=== PATIENT | male | born 1970 | race Caucasian/White ===

== ENCOUNTER 2019-04-14 21:11 | Emergency (ER) | payer OTHER, SELFPAY ==
[2019-04-14 21:17] VITALS: BP 151/99; PULSE 69; RESP 15; TEMP 36.6; O2SAT 94; BMI 31.3
--- NOTE | 2019-04-14 21:44 | ED_ITS ---
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 He states pain intermittently radiates down legs and states sometimes it will affect right leg and then other times left leg; he does not complain of numbness/tingling/loss of sensation; he has no complaints of saddle anesthesia, urinary retention, or bowel incontinence; patient was ambulatory to his room without difficulty MD elicited complaint: back pain Pertinent past history: prior back pain Onset (ago): hour(s) Timing: constant Location: lumbar spine and thoracic spine Exacerbating factors: movement and walking Context: while lifting Associated symptoms: Reports no associated symptoms; Deny abdominal pain, difficulty walking or syncope Review of Systems Card: Denies: chest pain, palpitations, irregular heart rhythm, edema, lightheadedness, syncope, pre-syncope or shortness of breath when lying down Resp: Denies: shortness of breath GI: Denies: abdominal pain : Denies: difficulty urinating or difficulty starting urination Musc: Reports: back pain; Denies: neck pain, extremity pain, extremity swelling, joint pain or joint swelling Neuro: Denies: numbness in extremities, weakness in extremities, changes in sensation or difficulty walking PFSH ED PFSH: Statuses (acute, chronic, etc) shown below reflect problem list status as previously entered and may not be historically accurate Social History Smoking and tobacco status: never smoked Physical Exam Const: COMMON NORMALS: no apparent distress, average body habitus, oriented x3, no limitations, healthy appearing, alert and well nourished Back/Pelvis: THORACIC SPINE/UPPER BACK: Yes thoracic spinal tenderness (mid to low) LUMBAR SPINE/LOWER BACK: Yes lumbar spinal tenderness Lumbar spinal tenderness location: L4 and L5, Yes paraspinal muscle tenderness (across lower back) and Yes straight leg raise negative bilaterally Extremity: COMMON NORMALS: normal to inspection and full ROM GENERAL: Yes normal exam except as noted OTHER: strength 5/5 in bilateral LEs Neuro: COMMON NORMALS: oriented x3 SENSORIUM/ORIENTATION: Yes alert Skin: COMMON NORMALS: no rashes or lesions noted GENERAL SKIN EXAM: no rashes or lesions noted Course Vital Signs: Vital signs: Vital Signs Temperature 97.9 F 04/14/19 21:17 Pulse Rate 71 04/14/19 22:10 Respiratory Rate 16 04/14/19 22:10 Blood Pressure 129/82 04/14/19 22:10 Pulse Oximetry 96 04/14/19 22:10 MDM - Back Pain/Injury MDM Narrative: Medical decision making narrative: will have pt follow up with worker's comp for further evaluation Imaging Data^: XR thoracic : My impression: NAD XR lumbar: My impression: NAD Discharge Plan Discharge Patient Disposition: Home, Self-Care Clinical Impression: Back strain Qualifiers: Encounter type: initial encounter Qualified Code(s): S39.012A - Strain of muscle, fascia and tendon of lower back, initial encounter Condition: Stable Prescriptions: New prednisone 10 mg tablet 60 mg PO DAILY 5 Days Qty: 30 RF: 0 hydrocodone-acetaminophen 5-325 mg tablet 1 tab PO Q6H PRN (Reason: pain) Qty: 14 RF: 0 diclofenac sodium 50 mg tablet,delayed release (DR/EC) 50 mg PO Q12H PRN (Reason: pain) Qty: 20 RF: 0 Discharge Orders: Discharge Order (Routine); Ordered 04/14/19 Ordered By: Drea Kwon Discharge Diet: Usual diet Discharge Activity: Increase activity as tolerated Activity Restrictions/Additional Instructions: Followup with worker's comp as directed on your paperwork. 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
--- NOTE | 2019-04-14 21:58 | XR_ITS ---
WS: [id number] Lumbar spine, 3 views, 04/14/2019 Clinical Data: injury/pain Comparison: None. Findings: No compression fractures or subluxation is seen. Degenerative disc narrowing at L4-L5 is noted. There is osteoarthritic spurring at L4-L5.. The transverse processes and SI joints are normal. Minimal calcification of the wall of the abdominal aorta is present. There is a large amount of fecal material in the rectum. XR/XR lumbar spine 2-3V* [id number] Impression: 1. Degenerative disc disease at L4-L5. 2. Mild osteoarthritic change at L4-L5.
--- NOTE | 2019-04-14 21:58 | XR_ITS ---
WS: [id number] Thoracic spine, 3 views, 04/14/2019 Clinical Data: injury/pain Comparison: None. Findings: No compression fractures are seen. The disc heights are normal. Minimal osteoarthritic spurring of the thoracic vertebral bodies is seen. XR/XR thoracic spine 3V* [id number] Impression: 1. Negative for compression fracture. 2. Mild osteoarthritis of the thoracic vertebral bodies.
--- NOTE | 2019-04-14 22:09 | PC.NURSE ---
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
[2019-04-14 22:10] VITALS: BP 129/82; PULSE 71; RESP 16; O2SAT 96
[2019-04-14] MEDS: ketorolac 60 mg/2 mL INJ IM (22:18)
[2019-04-14] MEDS: orphenadrine 30 mg/mL Inj 2 mL 60 MG IM (22:18)
[2019-04-14 23:45] VITALS: RESP 16; O2SAT 96
[2019-04-14] MEDS: morphine 4 mg/mL SDV 1 mL IM (23:45)
[2019-04-15 00:17] VITALS: BP 123/78; PULSE 71; RESP 16; O2SAT 95
== END 2019-04-15 00:16 | disposition home or self-care (01) ==
PROVIDERS: Emergency Provider Physician Assistant
DX: S39.012A Strain of muscle, fascia and tendon of lower back, initial encounter (principal); X50.0XXA Overexertion from strenuous movement or load, initial encounter
CPT/HCPCS: 72072; 72100; 96372; 99281; 99283; J1885; J2270; J2360

== ENCOUNTER 2019-11-29 23:38 | Emergency (ER) | payer BC, SELFPAY ==
[2019-11-29 23:44] VITALS: BP 131/86; PULSE 71; RESP 18; TEMP 36.3; O2SAT 93; BMI 26.4
--- NOTE | 2019-11-29 23:47 | CTR_ITS ---
PROCEDURE INFORMATION: Exam: CT Head Without Contrast Exam date and time: 11/29/2019 11:49 PM Age: 49 years old Clinical indication: Injury or trauma; Initial encounter; Blunt trauma (contusions or hematomas); With loss of consciousness; Loss of consciousness for 30 minutes or less; Injury details: Fall down stairs; Additional info: Fall, head trauma and loc TECHNIQUE: Imaging protocol: Computed tomography of the head without contrast. Radiation optimization: All CT scans at this facility use at least one of these dose optimization techniques: automated exposure control; mA and/or kV adjustment per patient size (includes targeted exams where dose is matched to clinical indication); or iterative reconstruction. COMPARISON: No relevant prior studies available. RADIATION DOSE METRICS: Total DLP (mGy-cm): 895.28 FINDINGS: Brain: Normal. No hemorrhage. Unremarkable white matter. No mass effect. Ventricles: No ventriculomegaly. Bones/joints: Unremarkable. No acute fracture. Paranasal sinuses: Visualized sinuses are unremarkable. No fluid levels. Mastoid air cells: Visualized mastoid air cells are well aerated. Soft tissues: Unremarkable. CT/CT head wo con* [id number] IMPRESSION: Negative for intracranial hemorrhage or mass effect. Radiation Dose CTDIVOL = (mGy): DLP = 895.28 (mGy-cm)
--- NOTE | 2019-11-29 23:52 | W.ED.FALL ---
HPI - Fall General: Chief Complaint: Fall Stated Complaint: fell down stairs Time Seen by Provider: 11/29/19 23:47 History of Present Illness: HPI Narrative: Patient is a 49-year-old male comes to the ED after having a fall down a flight of steps. Patient admits that he had been drinking previously. He says he got up in the middle the night and he was staying at his in-laws house and was not as familiar with the layout says that he fell down the stairs. He remembers right before he fell down the steps and then he says he was woken up at the bottom of the steps by his . He has pain in his left shoulder and above left a. He has a superficial abrasion on skin of upper lip just below the left nare. He also has linear laceration to the left of left eyebrow. He also says that his head hurts. He currently rates his pain an 8 out of 10. Associated symptoms-after fall: Reports headache(s); Denies abdominal pain, chest pain, hematuria or neck pain Review of Systems Const: Denies: fever(s), chills or fatigue Eyes: Denies: change in vision or eye discomfort ENMT: Denies: throat pain, odynophagia, nasal discharge or nasal congestion Card: Denies: chest pain, palpitations, edema, swelling of feet/ankles, dyspnea on exertion or orthopnea Resp: Denies: dyspnea, productive cough or non-productive cough GI: Denies: abdominal pain, nausea, vomiting, diarrhea, constipation or hematochezia : Denies: flank pain, difficulty urinating, dysuria or hematuria Musc: Reports: extremity pain (Left shoulder pain); Denies: neck pain, back pain or extremity swelling Skin/Breast: Reports: new lesions (Superficial abrasion on upper lip just below left nare and superficial linear laceration to the left of left eyebrow.); Denies: rash Neuro: Reports: headache(s); Denies: numbness in extremities or weakness in extremities PFS ED PFSH: Social History Smoking and tobacco status: never smoked Physical Exam Const: COMMON NORMALS: patient oriented x3 and alert ORIENTATION/CONSCIOUSNESS: Yes oriented to person, Yes oriented to place and Yes oriented to time HENMT: COMMON NORMALS: normocephalic and Normal external nose present HEAD & SCALP: normocephalic; no Solitario's sign and no raccoon eyes FACE & SINUS: abrasion (Superficial abrasion on upper lip just below left nare.), edema on the left periorbital (Left eye) and laceration left supraoribital linear, superficial, with motor nerve function intact and with sensation intact; not actively bleeding, no pulsatile bleeding and not contaminated Facial laceration size: 1 cm NOSE: Normal external nose present; no Epistaxis present MOUTH: Normal oral and palatal mucosa present THROAT: posterior oropharynx normal and uvula midline Eye: COMMON NORMALS: Equal, round and reactive pupils present, EOMs intact bilaterally and conjunctivae normal CONJUNCTIVA: Yes conjunctivae normal PUPIL: Yes Equal, round and reactive pupils present Neck/C-Spine: COMMON NORMALS: supple GENERAL: Yes normal visual inspection Resp: COMMON NORMALS: normal respiratory effort, No retractions, No use of accessory muscles and clear to auscultation bilaterally AUSCULTATION: clear to auscultation bilaterally Cardio: COMMON NORMALS: regular rate, regular rhythm, S1 normal heart sound present, S2 normal heart sound present, No gallops present (Cardio), No clicks present (Cardio), No murmurs present (Cardio) and Peripheral pulses 2+ throughout RATE: regular rate RHYTHM: regular rhythm HEART SOUNDS: S1 normal heart sound present and S2 normal heart sound present PERIPHERAL PULSES: Peripheral pulses 2+ throughout GI: COMMON NORMALS: Normal to inspection, nondistended, normoactive bowel sounds present, Soft to palpation, non-tender and no masses PALPATION: Yes Soft to palpation : COMMON NORMALS: Yes no CVA tenderness BLADDER/KIDNEY EXAM: Yes no CVA tenderness Back/Pelvis: COMMON NORMALS: no CVA tenderness Extremity: NARRATIVE EXTREMITY EXAM: Patient's left shoulder has some ecchymosis and a superficial abrasion on it. He has minimal range of motion and it is painful for him to abduct. Radial pulse 2+ sensation intact distally and cap refill normal. No visible deformity seen. No tenderness to palpation of left shoulder yet. GENERAL: Yes normal exam except as noted Neuro: KATIE COMA SCALE: document GCS findings [place] coma scale eye opening: Spontaneous Katie coma scale verbal response: Orientated [place] coma scale motor response: Obey commands [place] coma scale total score: 15 COMMON NORMALS: patient oriented x3, CN's II-XII intact bilaterally, moves all extremities, no focal motor deficits and no sensory deficits noted SENSORIUM/ORIENTATION: Yes alert, Yes oriented to person, Yes oriented to place and Yes oriented to time COORDINATION/BALANCE: [id number] test normal and [id number] test normal SENSORY EXAM: Yes extremities (intact) MOTOR EXAM: 5/5 motor strength present throughout COORDINATION: [id number]-[id number] test normal and cikx-wr-[id number] test normal Skin: GENERAL SKIN EXAM: dry skin Procedures Laceration Laceration 1: Site: face Side (If applicable): left Size (cm): 1 Description: linear and clean Depth: simple, single layer Pre-repair: irrigated extensively (with normal saline) Skin layer closed with: other (dermabond) Size (cm): other (dermabond) Technique: other (dermabond) Course Vital Signs: Vital signs: Vital Signs Temperature 97.3 F L 11/29/19 23:44 Pulse Rate 74 11/30/19 01:32 Respiratory Rate 18 11/30/19 01:32 Blood Pressure 122/80 11/30/19 01:32 Pulse Oximetry 97 11/30/19 01:32 MDM - Fall MDM Narrative: Medical decision making narrative: Patient is a 49-year-old male who comes to the ED after having a fall down some steps. He endorsed loss of consciousness. He is complaining of headache and left shoulder pain. He also has a superficial linear laceration to the left side of left eyelid. Neuro exam was completely normal and showed no deficits. Patient's left shoulder had no tenderness to palpation but did have a superficial abrasion and ecchymosis present. No visible deformity. Radial pulse 2+ and neurovascular intact distal to injury. CT of head showed no acute findings. Left shoulder x-ray showed no acute fractures. Patient's laceration was irrigated extensively with normal saline by nurse and then I closed laceration on face using Dermabond. Patient was told to rest, ice sore areas and take ibuprofen for pain and inflammation. Follow-up with PCP in 7 to 10 days. Return to ED precautions given. Patient understood and agreed with plan. Imaging Data^: CT Head: Attestation: I personally reviewed and interpreted this imaging study as follows: Radiologist's impression: [facility] [address] [address] Scan Report Signed Patient: Ayad Cummings Unit #: [id number] : 1970 Age/Sex: 49 / M ADM Date: 11/29/19 Loc: ER Room/Bed: Attending Dr: Ordering Provider/Ordering MD: Enrique Early Date of Service: 11/29/19 Procedure(s): CT head wo con* [id number] Accession Number(s): [id number] Report Number: [id number] PROCEDURE INFORMATION: Exam: CT Head Without Contrast Exam date and time: 11/29/2019 11:49 PM Age: 49 years old Clinical indication: Injury or trauma; Initial encounter; Blunt trauma (contusions or hematomas); With loss of consciousness; Loss of consciousness for 30 minutes or less; Injury details: Fall down stairs; Additional info: Fall, head trauma and loc TECHNIQUE: Imaging protocol: Computed tomography of the head without contrast. Radiation optimization: All CT scans at this facility use at least one of these dose optimization techniques: automated exposure control; mA and/or kV adjustment per patient size (includes targeted exams where dose is matched to clinical indication); or iterative reconstruction. COMPARISON: No relevant prior studies available. RADIATION DOSE METRICS: Total DLP (mGy-cm): 895.28 FINDINGS: Brain: Normal. No hemorrhage. Unremarkable white matter. No mass effect. Ventricles: No ventriculomegaly. Bones/joints: Unremarkable. No acute fracture. Paranasal sinuses: Visualized sinuses are unremarkable. No fluid levels. Mastoid air cells: Visualized mastoid air cells are well aerated. Soft tissues: Unremarkable. CT/CT head wo con* [id number] IMPRESSION: Negative for intracranial hemorrhage or mass effect. Radiation Dose CTDIVOL = (mGy): DLP = 895.28 (mGy-cm) Dictated By: Tin Cardenas MD Signed By: Tin Cardenas MD Signed Date/Time: 11/30/1922 DD/ Xray Ortho: Attestation: I personally reviewed and interpreted this imaging study as follows: My impression: Left shoulder x-ray showed no acute fractures or findings. Discharge Plan Discharge Patient Disposition: Home Clinical Impression: Fall (on) (from) other stairs and steps, initial encounter Laceration of face Qualifiers: Encounter type: initial encounter Qualified Code(s): S01.81XA - Laceration without foreign body of other part of head, initial encounter Left shoulder pain Qualifiers: Chronicity: acute Qualified Code(s): M25.512 - Pain in left shoulder Contusion Qualifiers: Encounter type: initial encounter Contusion area: shoulder Laterality: left Qualified Code(s): S40.012A - Contusion of left shoulder, initial encounter Condition: Stable Prescriptions: No Action hydrocodone-acetaminophen 5-325 mg tablet 1 tab PO Q6H PRN (Reason: pain) Qty: 14 RF: 0 diclofenac sodium 50 mg tablet,delayed release (DR/EC) 50 mg PO Q12H PRN (Reason: pain) Qty: 20 RF: 0 Discharge Orders: Discharge Order (Routine); Ordered 11/30/19 Ordered By: Enrique Early Discharge Diet: Regular Discharge Activity: Increase activity as tolerated Patient Instructions: Laceration, Shoulder Sprain (ED) Activity Restrictions/Additional Instructions: Follow-up with medical provider as directed7-10 days. Take vyzf-lly-apbbrec ibuprofen to help with pain and inflammation. Wear shoulder sling for the next couple days to help with symptoms. Remember to remove arm from sling daily and practice some range of motion exercises for the shoulder. Rest left shoulder and apply cold pack to help with symptoms. Return to the ER or your medical provider if condition worsens. Please read and understand discharge instructions. If any questions, please ask. Coding Level of Care Code ED Used [employer]ator for Ana Fwburak Exam Comprehensive
--- NOTE | 2019-11-30 00:22 | XRR_ITS ---
PROCEDURE INFORMATION: Exam: XR Left Shoulder Exam date and time: 11/30/2019 1:10 AM Age: 49 years old Clinical indication: Pain and injury or trauma; Fall; Initial encounter; Blunt trauma (contusions or hematomas); Shoulder; Left; Additional info: Fall with pain TECHNIQUE: Imaging protocol: XR Left shoulder. Views: 2 or more views. COMPARISON: No relevant prior studies available. FINDINGS: Bones/joints: No fractures, dislocations, or separations identified. No significant bony abnormality identified. Soft tissues: No subcutaneous gas or radiopaque foreign body identified. XR/XR shoulder LT min 2V* [id number] IMPRESSION: 1. No fractures, dislocations, or separations identified.
[2019-11-30] MEDS: tetanus-diphtheria tox (adult) 0.5 mL SDV IM (00:38)
[2019-11-30] MEDS: HYDROcodone-acetaminophen 7.5-325 mg Tablet 1 TAB PO (00:38)
[2019-11-30] MEDS: HYDROcodone-acetaminophen 5-325 mg Tablet 1 TAB PO (01:19)
[2019-11-30] MEDS: ketorolac 30 mg/mL INJ IM (01:19)
[2019-11-30 01:32] VITALS: BP 122/80; PULSE 74; RESP 18; O2SAT 97
--- NOTE | 2019-11-30 01:37 | PC.NURSE ---
lac irrigated with normal saline and dried with sterile 4x4
--- NOTE | 2019-11-30 02:09 | PC.NURSE ---
i agree with this assessment
== END 2019-11-30 02:09 | disposition home or self-care (01) ==
PROVIDERS: Emergency Provider Physician Assistant
DX: S01.81XA Laceration without foreign body of other part of head, initial encounter (principal); S40.012A Contusion of left shoulder, initial encounter; W10.8XXA Fall (on) (from) other stairs and steps, initial encounter; Z23 Encounter for immunization
CPT/HCPCS: 12011; 12345; 70450; 73030; 90471; 90714; 96372; 99281; 99282; 99283; J1885

== ENCOUNTER 2021-08-08 23:46 | Emergency (ER) | payer OTHER, SELFPAY ==
[2021-08-08 23:49] VITALS: BP 112/67; PULSE 69; RESP 16; TEMP 36.6; O2SAT 98; BMI 28.3
--- NOTE | 2021-08-08 23:58 | W.ED.FALL ---
HPI - Fall General: Chief Complaint: Fall Stated Complaint: injured chin Time Seen by Provider: 08/08/21 23:58 History of Present Illness: 51-year-old male comes in with injury to the chin. Patient reports he hadfallen asleep in his chair. Patient had slipped out of his chair and hit his chin against the floor lacerating it. Patient denies any loss of consciousness or complaints of headache after fall. Associated symptoms-after fall: Denies chest pain or neck pain Review of Systems General: Reports: 10 or more systems reviewed and unremarkable except in HPI and below Card: Denies: chest pain Resp: Denies: dyspnea Musc: Denies: neck pain Skin/Breast: Reports: new lesions [facility] ED PFSH: Medical History (Updated 08/09/21 @ 00:25 by JULIANE Kirk) Psychiatric care Social History Smoking and tobacco status: never smoked Physical Exam Const: COMMON NORMALS: alert HENMT: FACE & SINUS: laceration (2 cm chin) MOUTH: Normal oral and palatal mucosa present Neck/C-Spine: COMMON NORMALS: full ROM Chest: COMMONS NORMALS: normal palpation of entire chest wall Resp: COMMON NORMALS: normal respiratory effort Cardio: COMMON NORMALS: regular rate RATE: regular rate Extremity: COMMON NORMALS: normal to inspection Neuro: SENSORIUM/ORIENTATION: Yes alert Skin: TRAUMA: laceration (Chin) Procedures Laceration Laceration 1: Site: face Size (cm): 2 Description: linear Depth: simple, single layer Local Anesthetic: lidocaine 1% Amount of anesthesia used (mL): 2 Pre-repair: wound explored, irrigated extensively and deep structures intact Skin layer closed with: vicryl Size (cm): 4-0 Number of sutures: 3 Technique: simple, interrupted (2) and horizontal mattress (1) Course Vital Signs: Vital signs: Vital Signs Temperature 97.8 F 08/08/21 23:49 Pulse Rate 69 08/08/21 23:49 Respiratory Rate 16 08/08/21 23:49 Blood Pressure 112/67 08/08/21 23:49 Pulse Oximetry 98 08/08/21 23:49 MDM - Fall Medical Decision Making 51-year-old male patient comes in for injury to the chin after falling asleep in his chair and sliding out of it. Patient reports hitting his chin against the floor which caused a laceration. On exam patient has a 2 cm laceration to the anterior chin. Patient is alert oriented. No focal neural deficits are noted. Patient moves neck without pain. No other signs of injury is noted. Oral mucosa is normal and teeth are intact. Vital signs are normal. Differential diagnosis includes but not limited to laceration, fracture, foreign body. No sign of fracture or foreign body was noted within the wound. Wound was closed with 3 stitches. Patient tolerated well. Patient will be covered with cephalexin for prophylaxis antibiotic. Tetanus shot was updated. Discharge Plan Discharge Patient Disposition: Home Clinical Impression: Chin laceration Qualifiers: Encounter type: initial encounter Qualified Code(s): S01.81XA - Laceration without foreign body of other part of head, initial encounter Condition: Stable Prescriptions: New cephalexin 500 mg capsule 500 mg PO Q12H Qty: 14 0RF No Action metoprolol tartrate 25 mg tablet 25 mg PO DAILY 0RF quetiapine [Seroquel] 50 mg tablet 50 mg PO DAILY 0RF hydrocodone-acetaminophen 5-325 mg tablet 1 tab PO Q6H PRN (Reason: pain) Qty: 14 0RF diclofenac sodium 50 mg tablet,delayed release (DR/EC) 50 mg PO Q12H PRN (Reason: pain) Qty: 20 0RF Discharge Orders: Discharge ED (Routine); Ordered 08/09/21 Ordered By: Elieser Brambila Discharge Diet: Usual diet Discharge Activity: Increase activity as tolerated Patient Instructions: Facial Laceration (ED) Activity Restrictions/Additional Instructions: Keep laceration clean and dry for the next 48 hours. After that you can wash the laceration gently with mild soap and water and then dry thoroughly. Monitor site for signs of infection. Sutures out in 7 days. Follow-up with primary care in 1 week for recheck. Return to ER for new concerns. 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
[2021-08-09] MEDS: cephALEXin 500 mg Capsule PO (00:28)
[2021-08-09] MEDS: tetanus-dipt-pertussis 0.5 mL SDV IM (00:29)
[2021-08-09 00:45] VITALS: BP 117/61; PULSE 65; RESP 18; TEMP 36.6; O2SAT 98
== END 2021-08-09 00:35 | disposition home or self-care (01) ==
PROVIDERS: Emergency Provider Nurse Practitioner Family
DX: S01.81XA Laceration without foreign body of other part of head, initial encounter (principal); W07.XXXA Fall from chair, initial encounter; Z23 Encounter for immunization
CPT/HCPCS: 12011; 90471; 90715; 99283

== ENCOUNTER 2023-07-06 10:52 | Emergency (ER) | payer OTHER, SELFPAY ==
[2023-07-06 11:03] VITALS: BP 211/117; PULSE 57; RESP 20; TEMP 36.7; O2SAT 97
--- NOTE | 2023-07-06 11:05 | ED_ITS ---
HPI - General Adult 2 General: Chief complaint: General Medical Stated complaint: high bp Time Seen by Provider: 07/06/23 11:05 History of Present Illness: 53-year-old male presents emergency depa rtment after being seen at his primary care clinic today and failure [place]. He states that he checked his blood pressure and it was a systolic over 200. He states that they have had significant difficulty controlling his blood pressure and have recently changed several medications. He states that approximately 2 days ago he did have a syncopal episode and passed out while driving. He states that since his medication change 2 weeks ago he has had several episodes of feeling like he is going to pass out and nearly passing out. He states that one of the medications they changed was valsartan because it was causing him significant swelling. And it does appear that he is taken metoprolol and lisinopril for his antihypertensive control. His significant other who is accompanying him states that he will intermittently become confused when his blood pressure is excessively high. She states that he also has had episodes of nausea and vomiting when his blood pressures uncontrolled. He denies chest pain at present. He denies shortness of breath. He does endorse dizziness and feeling like he is in a fog when his blood pressure is elevated. Associated symptoms: Reports nausea, syncope and vomiting; Deny chest pain or dyspnea Review of Systems 2 General: Reports: 10 or more systems reviewed and unremarkable except in HPI and below Card: Reports: syncope and pre-syncope; Denies: chest pain Resp: Denies: dyspnea GI: Reports: nausea and vomiting [facility] ED 2 PFSH: Medical History Hypertension Surgical History No pertinent past surgical history Family History Mother Diabetes Grandfather Diabetes Father Hypertension Denies family history of CAD (coronary artery disease) Clotting disorder Dementia Psychiatric illness Bleeding disorder Cancer Stroke Social History Smoking and tobacco/nicotine status: never used tobacco/nicotine Second hand smoke exposure: Yes Alcohol intake: current Alcohol intake frequency: few times a week Alcohol type: beer Substance/Drug Use: never Caregiver/support person: Yes (spouse) Lives independently: Yes Marital status: service: No Current occupational status: employed Current occupation: [employer] Current gender identity: Male Special isiah needs: No Agree to transfusion: No Physical Exam 2 Narrative: EXAM NARRATIVE: Constitutional: the patient appears well nourished and with normal development. Vital signs reviewed as documented. HENMT: Normocephalic, atraumatic. External ears normal appearance without drainage. Nose without drainage, normal appearance. Mucus membranes moist. Neck is supple, No jugular venous distension, trachea is midline, no appreciable carotid bruits. No lymphadenopathy. No meningeal signs. Flexion, extension and lateral rotation is without pain. Eyes: Pupils are equal, round, reactive to light and accommodation. No scleral icterus. Extra-ocular movement are intact. Thorax is symmetrical and with equal rise and fall with respirations. Resp: Lungs are clear to auscultation. No wheezes, rales, crackles or ronchi at present. Cardio: Regular rate and rhythm. Positive S1, S2. No appreciable murmurs, rubs or gallops. GI: Abdominal exam reveals normal bowel sounds to all quadrants. No organomegaly. No obvious palpable masses noted. No hepatomegally appreciated. Soft, non-tender to palpation. Extremity: Extremities are non-edematous and both femoral and pedal pulses are 2+ and equal bilaterally. Moves all extremities well, sensation in all extremities. Neuro: Alert and oriented x4, person, place, time and situation. Cranial nerves II through XII are grossly intact, there is no focal neurological deficits that I can appreciate at present. Sensation intact to all extremities. 2-point discrimination intact. Light touch intact to all extremities. Motor strength in the upper and lower extremities are equal and bilateral 5/5. Psych: Cooperative, calm, normal thought process, appropriate judgment. Skin: No lesions, rashes. No gross abnormalities noted. Back: Symmetrical, no obvious deformity, No CVA tenderness Course 2 Reevaluation(s): Reevaluation #1: Blood pressure much improved patient states he feels much better. I had an extensive discussion with the patient regarding discontinuing his metoprolol given that he is having syncopal episodes I suspect most likely this is because of the beta-sheridan effect on the patient's heart as his heart rate has been in the upper 50s to 60s. I will change his antihypertensive medications and have him discontinue the beta-sheridan and follow-up with his primary care provider. Time: 12:56 Vital Signs: Vital signs: Vital Signs Temperature 98.1 F 07/06/23 11:03 Pulse Rate 57 L 07/06/23 12:03 Respiratory Rate 20 H 07/06/23 12:03 Blood Pressure 153/85 07/06/23 12:03 Pulse Oximetry 96 07/06/23 12:03 Oxygen Delivery Me thod Room Air 07/06/23 12:03 MDM - General Adult Medical Decision Making Physical exam completed and documented, will obtain a CBC CMP cardiac enzymes chest x-ray and twelve-lead EKG as well as provide the patient antihypertensive medication hydralazine and p.o. clonidine as his systolic blood pressure is 222/124 that was confirmed on a recheck of his blood pressure that I did personally. Differential Diagnosis Renal artery stenosis, electrolyte abnormality, medication non--compliance Medical Records I reviewed the patient's medical records. Lab Data I reviewed the patient's lab results. 07/06/23 11:17 07/06/23 11:17 Radiology Impressions Chest X-Ray 07/06/23 11:06 IMPRESSION: Elevation of the right hemidiaphragm with subsegmental atelectasis at the right lung base. The chest is otherwise clear Head CT 07/06/23 11:06 IMPRESSION: 1. No CT evidence of acute brain injury 2. Mild chronic ethmoid and sphenoid sinusitis Laboratory Results WBC 6.48 10^3/uL (3.29-11.43) 07/06/23 11:17 RBC 5.60 10^6/uL (3.85-5.65) 07/06/23 11:17 Hgb 17.50 g/dL (11.27-16.99) H 07/06/23 11:17 Hct 53.0 % (37-53) 07/06/23 11:17 MCV 94.6 fl (82-101) 07/06/23 11:17 MCH 31.3 pg (27-33) 07/06/23 11:17 MCHC 33.0 g/dL (30-55) 07/06/23 11:17 RDW 12.0 % (12.1-15.1) L 07/06/23 11:17 Plt Count 271 10^3/cmm (157-399) 07/06/23 11:17 MPV 9.7 fL (7.4-10.4) 07/06/23 11:17 Neut % (Auto) 54.7 % 07/06/23 11:17 Lymph % (Auto) 30.1 % 07/06/23 11:17 Morton % (Auto) 7.6 % 07/06/23 11:17 Eos % (Auto) 5.1 % 07/06/23 11:17 Baso % (Auto) 2.2 % 07/06/23 11:17 Neut # (Auto) 3.55 10^3/uL (1.8-7.7) 07/06/23 11:17 Lymph # (Auto) 2.0 10^3/uL (0.8-4.8) 07/06/23 11:17 Morton # (Auto) 0.5 10^3/uL (0.2-0.9) 07/06/23 11:17 Eos # (Auto) 0.3 10^3/uL (0.0-0.8) 07/06/23 11:17 Baso # (Auto) 0.1 10^3/uL (0.0-0.1) 07/06/23 11:17 Nucleated RBC % (auto) 0 % 07/06/23 11:17 Nucleated RBCs # 0.0 /100WBC 07/06/23 11:17 PT 11.90 SECONDS (12.1-14.9) L 07/06/23 11:17 INR 0.85 (0.8-1.2) 07/06/23 11:17 Sodium 137 mmol/L (136-145) 07/06/23 11:17 Potassium 4.3 mmol/L (3.5-5.1) 07/06/23 11:17 Chloride 97 mmol/L (98-107) L 07/06/23 11:17 Carbon Dioxide 31 mmol/L (22-29) H 07/06/23 11:17 Anion Gap 13.3 (5-19) 07/06/23 11:17 BUN 12 mg/dL (6-20) 07/06/23 11:17 Creatinine 0.7 mg/dL (0.7-1.2) 07/06/23 11:17 GFR Calculation 118.0 mL/min (90-130) 07/06/23 11:17 Glucose 97 mg/dL (65-115) 07/06/23 11:17 Calculated Osmolality 284 mOsm/kg (285-295) L 07/06/23 11:17 Calcium 9.7 mg/dL (8.5-10.5) 07/06/23 11:17 Total Bilirubin 0.5 mg/dL (0.15-1.2) 07/06/23 11:17 AST 24 U/L (0-40) 07/06/23 11:17 ALT 30 U/L (0-41) 07/06/23 11:17 Alkaline Phosphatase 62 U/L (40-130) 07/06/23 11:17 Troponin T Baseline 16 ng/L (0-15) H 07/06/23 11:17 NT-Pro-B Natriuret Pep 145 pg/mL (0-125) H 07/06/23 11:17 Total Protein 8.3 g/dL (6.6-8.7) 07/06/23 11:17 Albumin 5.1 g/dL (3.5-5.2) 07/06/23 11:17 Globulin 3.2 g/dL (1.3-4.6) 07/06/23 11:17 All radiology interpretation(s) finalized by discharge EKG Data EKG 1: Interpretation: Twelve-lead EKG obtained at 1058 and reviewed at 1102 demonstrates sinus bradycardia with a ventricular rate of 57, AR interval 172, QRS duration 88, QT 405, QTc [address] elevation or depression at present to demonstrate acute ischemia or infarction. Computer generated interpretation: Chest X-Ray 07/06/23 11:06 IMPRESSION: Elevation of the right hemidiaphragm with subsegmental atelectasis at the right lung base. The chest is otherwise clear Head CT 07/06/23 11:06 IMPRESSION: 1. No CT evidence of acute brain injury 2. Mild chronic ethmoid and sphenoid sinusitis Discharge Plan Discharge Patient Disposition: Home Clinical Impression: Hypertension, uncontrolled, Syncope Condition: Stable Prescriptions: New lisinopril 20 mg tablet 20 mg PO DAILY Qty: 90 2RF clonidine HCl 0.1 mg tablet 0.1 mg PO Q1H PRN (Reason: Systolic BP over 180) Qty: 30 0RF Rx Instructions: 1 pill if systolic BP above 180, repeat in 1 hour if BP remains above 180. hydrochlorothiazide 25 mg tablet 25 mg PO QAM Qty: 90 2RF No Action lisinopril 10 mg tablet 10 mg PO QAM metoprolol succinate 50 mg tablet extended release 24 hr 50 mg PO QAM Discharge Orders: Discharge ED (Routine); Ordered 07/06/23 Ordered By: Isidoro Pratt Referrals: Janet Chow MD [Primary Care Provider] - Discharge Diet: Low Salt Discharge Activity: Resume usual activity Patient Instructions: Opioid Safety, Pain Management Coding Level of Care Code ED Home Teaching Grades 9 Thru 12 Teacher for Ana Novak
--- NOTE | 2023-07-06 11:06 | XRR_ITS ---
PROCEDURE INFORMATION: Exam: XR Chest Exam date and time: 07/06/2023 11:22 AM Age: 53 years old Clinical indication: Other: High blood pressure; Additional info: Syncope TECHNIQUE: Imaging protocol: Radiologic exam of the chest. Views: 1 view. COMPARISON: CR XR shoulder RT min 2V* [id number] 01/14/2021 10:02 FINDINGS: Lungs: Minimal subsegmental atelectasis at the right lung base. The lungs are otherwise clear. Pleural spaces: No pleural effusion or pneumothorax on either side Heart/Mediastinum: Heart and mediastinum are normal Diaphragm: Elevation of the right hemidiaphragm. Bones/joints: Unremarkable. XR/XR chest 1V portable [id number] IMPRESSION: Elevation of the right hemidiaphragm with subsegmental atelectasis at the right lung base. The chest is otherwise clear
--- NOTE | 2023-07-06 11:06 | CTR_ITS ---
PROCEDURE INFORMATION: Exam: CT Head Without Contrast Exam date and time: 07/06/2023 11:49 AM Age: 53 years old Clinical indication: Other: Syncope TECHNIQUE: Imaging protocol: Computed tomography of the head without contrast. Radiation optimization: All CT scans at this facility use at least one of these dose optimization techniques: automated exposure control; mA and/or kV adjustment per patient size (includes targeted exams where dose is matched to clinical indication); or iterative reconstruction. COMPARISON: CT head wo con* [id number] 30/11/2019 00:02 RADIATION DOSE METRICS: Total DLP (mGy-cm): 1113.32 FINDINGS: Brain: Normal. No hemorrhage. Unremarkable white matter. No mass effect. Cerebral ventricles: No ventriculomegaly. Paranasal sinuses: Mild chronic ethmoid and sphenoid sinusitis. Mastoid air cells: Visualized mastoid air cells are well aerated. Bones/joints: Unremarkable. No acute fracture. Soft tissues: Unremarkable. CT/CT head wo con* [id number] IMPRESS[address]: 1[address] No CT evidence of acute brain injury 2. Mild chronic ethmoid and sphenoid sinusitis
--- NOTE | 2023-07-06 11:07 | ECG_ITS ---
[facility] Test Date: 2023-07-06 Pat Name: Ayad Cummings Department: Room: Gender: Male Public Health: : 1970 Requested By: Isidoro Pratt Order Number: [id number] [place] MD: Jignesh Maldonado M.D. Measurements Intervals [place] Rate: 57 P: 61 AR: 172 QRS: 77 QRSD: 88 T: 63 QT: 405 QTc: 396 Interpretive Statements SINUS BRADYCARDIA No previous ECG available for comparison Electronically Signed On 07-06-2023 22:49:36 CDT by Jignesh Maldonado M.D. [email or web address]
--- NOTE | 2023-07-06 11:23 | PC.PHAR ---
pt states he takes care of his own medications-pt states the valsartan 160mg daily filled on 05/26/23 30d/s was dced due to making him swell-pt states he took his metoprolol succinate 50mg today but not the lisinopril 10mg daily today-pt states takes no otc medications
[2023-07-06 11:26] LABS: Basophils # 0.1 10^3/uL (0.0-0.1); Basophils % 2.2 %; Eosinophils # 0.3 10^3/uL (0.0-0.8); Eosinophils % 5.1 %; Lymphocytes % 30.1 %; Mean Corpuscular Hemoglobin 31.3 pg (27-33); Mean Corpuscular Volume 94.6 fl (82-101); Mean Platelet Volume 9.7 fL (7.4-10.4); Monocytes # 0.5 10^3/uL (0.2-0.9); Monocytes % 7.6 %; Neutrophils # 3.55 10^3/uL (1.8-7.7); Neutrophils % 54.7 %; Nucleated Red Blood Cells % 0 %; Platelet Count 271 10^3/cmm (157-399); White Blood Count 6.48 10^3/uL (3.29-11.43)
[2023-07-06 11:31] VITALS: BP 222/124
[2023-07-06] MEDS: cloNIDine 0.1 mg Tablet 0.100000000000000006 MG PO (11:31)
[2023-07-06] MEDS: hyDRALAzine 20 mg/mL INJ 1 mL IVP (11:32)
[2023-07-06 11:39] LABS: INR 0.85 (0.8-1.2)
[2023-07-06 12:00] LABS: Alanine Aminotransferase 30 U/L (0-41); Albumin Level 5.1 g/dL (3.5-5.2); Alkaline Phosphatase 62 U/L (40-130); Anion Gap 13.3 (5-19); Aspartate Amino Transferase 24 U/L (0-40); Blood Urea Nitrogen 12 mg/dL (6-20); Calcium 9.7 mg/dL (8.5-10.5); Carbon Dioxide 31 mmol/L (22-29); Chloride 97 mmol/L (98-107); Globulin 3.2 g/dL (1.3-4.6); Glucose 97 mg/dL (65-115); NT Pro B Type Natriuretic Pept 145 pg/mL (0-125); Osmolality Calculated 284 mOsm/kg (285-295); Potassium 4.3 mmol/L (3.5-5.1); Sodium 137 mmol/L (136-145); Total Bilirubin 0.5 mg/dL (0.15-1.2); Total Protein 8.3 g/dL (6.6-8.7)
[2023-07-06 12:03] VITALS: BP 153/85; PULSE 57; RESP 20; O2SAT 96
[2023-07-06 12:06] LABS: Troponin(5th) Baseline 16 ng/L (0-15)
== END 2023-07-06 14:27 | disposition home or self-care (01) ==
PROVIDERS: Emergency Provider Internal Medicine; PCP Family Medicine
DX: R55 Syncope and collapse (principal); I10 Essential (primary) hypertension; Z77.22 Contact with and (suspected) exposure to environmental tobacco smoke (acute) (chronic)
CPT/HCPCS: 70450; 71045; 80053; 83880; 84484; 85025; 85610; 93005; 96374; 99285; J0360

== ENCOUNTER → 2024-04-18 13:54 | Outpatient (BNVA) | payer OTHER, SELFPAY | PROVIDERS: Family Provider Nurse Practitioner Family; PCP Nurse Practitioner Family; Visit Provider Nurse Practitioner Family | DX: M47.894 Other spondylosis, thoracic region (principal); G89.29 Other chronic pain; M25.78 Osteophyte, vertebrae; R93.89 Abnormal findings on diagnostic imaging of other specified body structures; M47.896 Other spondylosis, lumbar region; M41.86 Other forms of scoliosis, lumbar region; M51.369 Other intervertebral disc degeneration, lumbar region without mention of lumbar back pain or lower extremity pain; R93.7 Abnormal findings on diagnostic imaging of other parts of musculoskeletal system; M47.897 Other spondylosis, lumbosacral region; I70.0 Atherosclerosis of aorta | CPT/HCPCS: 72072; 72100 ==

== ENCOUNTER 2024-05-07 06:00 | Outpatient (RCR) | payer OTHER, SELFPAY | END 2024-06-06 23:55 | disposition home or self-care (01) | LOC: TPT 06:00 | PROVIDERS: Family Provider Nurse Practitioner Family; PCP Nurse Practitioner Family; Visit Provider Nurse Practitioner Family | DX: M54.50 Low back pain, unspecified (principal) | CPT/HCPCS: 97161 ==

== ENCOUNTER 2024-06-07 06:30 | Outpatient (RCR) | payer OTHER, SELFPAY | END 2024-06-27 09:08 | disposition home or self-care (01) | LOC: TPT 06:30 | PROVIDERS: Family Provider Nurse Practitioner Family; PCP Nurse Practitioner Family; Visit Provider Nurse Practitioner Family | DX: M54.50 Low back pain, unspecified (principal) | CPT/HCPCS: 97110 ==

== ENCOUNTER → 2024-10-10 14:59 | Outpatient (BNVA) | payer OTHER, SELFPAY | PROVIDERS: Family Provider Nurse Practitioner Family; PCP Nurse Practitioner Family; Visit Provider Nurse Practitioner Family | DX: Z12.5 Encounter for screening for malignant neoplasm of prostate (principal); I10 Essential (primary) hypertension | CPT/HCPCS: 80053; 80061; 82607; 84443; 85025; G0103 ==